=== PATIENT | female | born 1965 | race Caucasian/White ===

== ENCOUNTER 2018-09-21 13:36 | Emergency (ER) | payer MEDICAID ==
[~2018-09-21] VITALS: Ht 167.6 cm; Wt 55.8 kg
--- NOTE | 2018-09-21 13:54 | NUR ---
"Stress, neck, upper back pain Numbness on face, arms and upper body on/off xcouple weeks worse last week also feeling depressed". 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 NO ACUTE DISTRESS NOTED. SKIN INTACT. READY FOR EVAL.
[2018-09-21 14:37] LABS: BASOPHILS % (AUTO) 0.4 % (0.0-2.0); HEMATOCRIT 40 % (33-45); HEMOGLOBIN 13.2 g/dL (11.5-14.8); LYMPHOCYTES # (AUTO) 1.3 /CMM (0.8-4.8); LYMPHOCYTES % (AUTO) 17.8 % (20.0-44.0); MEAN CORPUSCULAR HGB CONC 33 g/dl (31.0-36.0); MEAN CORPUSCULAR VOLUME 91 fL (82-100); MONOCYTES # (AUTO) 0.4 /CMM (0.1-1.30); NEUTROPHILS # (AUTO) 5.3 /CMM (1.8-8.9); NEUTROPHILS % (AUTO) 74.8 % (43.0-81.0); PLATELET COUNT (AUTO) 322 /CMM (150-450); RED BLOOD CELL COUNT(AUTO) 4.32 MIL/uL (4.0-5.2); WHITE BLOOD COUNT (AUTO) 7.1 K/uL (4.3-11.0)
[2018-09-21 14:44] LABS: CALCIUM, SERUM 8.7 mg/dL (8.5-10.1); CARBON DIOXIDE 27 mmol/L (21-32); CHLORIDE 106 mmol/L (98-107); CREATININE 0.7 mg/dL (0.6-1.3); GLUCOSE 87 mg/dL (74-106); POTASSIUM 3.3 mmol/L (3.5-5.1); SODIUM SERUM 138 mmol/L (136-145); UREA NITROGEN, BLOOD 12 mg/dL (7-18)
[2018-09-21 14:50] LABS: ALANINE AMINOTRANSFERASE 18 U/L (12-78); ALBUMIN 3.8 g/dL (3.4-5.0); ALKALINE PHOSPHATASE 51 U/L (46-116); ASPARTATE AMINOTRANSFERASE 16 U/L (15-37); BILIRUBIN,DIRECT 0.1 mg/dL (0.0-0.2); BILIRUBIN,TOTAL 0.4 mg/dL (0.2-1.0)
--- NOTE | 2018-09-21 15:34 | NUR ---
Patient discharged to home in stable condition. Written and verbal after care instructions given. Patient verbalizes understanding of instruction.
[2018-09-21 15:35] VITALS: BP 145/86
== END 2018-09-21 15:36 | disposition home or self-care (01) ==
LOC: ER 13:42
DX: R20.2 Paresthesia of skin (principal); Z88.2 Allergy status to sulfonamides; Z88.1 Allergy status to other antibiotic agents
CPT/HCPCS: 36415; 71045; 80048; 80076; 84484; 85025; 93005; 99284; A4606

== ENCOUNTER 2019-05-05 23:38 | Emergency (ER) | payer MEDICAID ==
[~2019-05-05] VITALS: Ht 170.2 cm; Wt 67.6 kg
[2019-05-05 23:55] VITALS: BP 129/83
[2019-05-06] MEDS ORDERED: FLUORESCEIN SODIUM OPHTH 1 EA STRIP ONE (00:02)
[2019-05-06] MEDS: TETRAcaine 5 ML BOTTLE EACHEYE ONE (00:16)
[2019-05-06] MEDS: FLUORESCEIN SODIUM OPHTH 1 EA STRIP OP ONE (00:16)
== END 2019-05-06 00:19 | disposition home or self-care (01) ==
LOC: ER 23:41
DX: S05.01XA Injury of conjunctiva and corneal abrasion without foreign body, right eye, initial encounter (principal); Z88.2 Allergy status to sulfonamides; Z88.1 Allergy status to other antibiotic agents; X58.XXXA Exposure to other specified factors, initial encounter; Y93.89 Activity, other specified; Y92.89 Other specified places as the place of occurrence of the external cause; Y99.8 Other external cause status

== ENCOUNTER 2019-06-14 21:49 | Emergency (ER) | payer MEDICAID ==
[~2019-06-14] VITALS: Ht 170.2 cm; Wt 65.8 kg
--- NOTE | 2019-06-14 21:55 | NUR ---
PT BIBSELF. AAOX4. AMBULATORY. PT C/O SOB. "CHOKING ON CHICKEN OR SOMETHING." PT RR EVEN AND UNLABORED. VSS. O2 100. PT STATES SHE HAS BEEN VOMITING X2HRS. CLEAR VOMIT. PLACED ON MONITOR AND PULSE OX.
--- NOTE | 2019-06-14 22:05 | NUR ---
PT SPEAKING TO MD. NO ACUTE DISTRESS NOTED. RR EVEN AND UNLABORED.
[2019-06-14] MEDS ORDERED: diphenhydrAMINE HCL 50 MG/ML VIAL ONE (22:17)
[2019-06-14] MEDS ORDERED: PANTOPRAZOLE 40 MG VIAL ONE (22:18)
[2019-06-14] MEDS ORDERED: METOCLOPRAMIDE HCL 10 MG/2 ML VIAL ONE (22:18)
[2019-06-14] MEDS ORDERED: GLUCAGON,HUMAN RECOMBINANT 1 MG/VIAL VIAL ONE (22:18)
--- NOTE | 2019-06-14 22:21 | NUR ---
XRAY AT BEDSIDE
[2019-06-14 22:24] LABS: BASOPHILS % (AUTO) 0.8 % (0.0-2.0); EOSINOPHILS % (AUTO) 4.2 % (0.0-6.0); HEMATOCRIT 40 % (33-45); HEMOGLOBIN 13.1 g/dL (11.5-14.8); LYMPHOCYTES % (AUTO) 32.1 % (20.0-44.0); MEAN CORPUSCULAR HGB CONC 33 g/dl (31.0-36.0); MEAN CORPUSCULAR VOLUME 90 fL (82-100); MONOCYTES # (AUTO) 0.4 /CMM (0.1-1.30); MONOCYTES % (AUTO) 7.2 % (2.0-12.0); NEUTROPHILS # (AUTO) 3.4 /CMM (1.8-8.9); NEUTROPHILS % (AUTO) 55.7 % (43.0-81.0); PLATELET COUNT (AUTO) 327 /CMM (150-450); WHITE BLOOD COUNT (AUTO) 6.2 K/uL (4.3-11.0)
[2019-06-14] MEDS ORDERED: METOCLOPRAMIDE HCL 10 MG/2 ML VIAL IV ONE (22:30)
[2019-06-14] MEDS ORDERED: diphenhydrAMINE HCL 50 MG/ML VIAL IV ONE (22:30)
[2019-06-14] MEDS ORDERED: PANTOPRAZOLE 40 MG VIAL IV ONE (22:30)
[2019-06-14] MEDS ORDERED: GLUCAGON,HUMAN RECOMBINANT 1 MG/VIAL VIAL IV ONE (22:30)
[2019-06-14 22:38] LABS: CALCIUM, SERUM 8.6 mg/dL (8.5-10.1); CREATININE 0.9 mg/dL (0.6-1.3); POTASSIUM 3.6 mmol/L (3.5-5.1)
[2019-06-14 22:43] LABS: ALBUMIN 3.6 g/dL (3.4-5.0); BILIRUBIN,DIRECT 0.1 mg/dL (0.0-0.2); BILIRUBIN,TOTAL 0.2 mg/dL (0.2-1.0); TOTAL PROTEIN, SERUM 6.7 g/dL (6.4-8.2)
--- NOTE | 2019-06-14 23:15 | NUR ---
Patient is resting comfortably in bed. Easily aroused. VSS. at bedside
--- NOTE | 2019-06-15 00:01 | NUR ---
Patient is resting comfortably in bed. Easily aroused. VSS.
--- NOTE | 2019-06-15 00:31 | NUR ---
SPOKE TO RADHA PAIGE ABOUT GOING TO A DIFFERENT HOSPITAL OVER [facility]. [facility] WILL WORK ON IT
--- NOTE | 2019-06-15 01:53 | NUR ---
Pt accepted to [facility]. Bed 307-B. # for report [phone]
--- NOTE | 2019-06-15 02:00 | NUR ---
Call from [facility]. ETA [phone] [facility] ambulance
--- NOTE | 2019-06-15 02:40 | NUR ---
CALLED MAMADOU YANG FOR REPORT. REPORT GIVEN
--- NOTE | 2019-06-15 03:06 | NUR ---
Danuta grimes in [facility] - 06/15/19 at 0307 by VERO REPORT GIVEN TO BING FROM [facility]
--- NOTE | 2019-06-15 03:07 | NUR ---
REPORT GIVEN TO BING FROM [facility]
[2019-06-15 03:13] VITALS: BP 111/76
--- NOTE | 2019-06-15 03:17 | NUR ---
PT BEING TRANSFERED.
== END 2019-06-15 03:20 | disposition short-term general hospital (02) ==
LOC: ER 21:52
DX: K22.2 Esophageal obstruction (principal); Z88.2 Allergy status to sulfonamides; Z88.1 Allergy status to other antibiotic agents
CPT/HCPCS: 36415; 71045; 80048; 80076; 83690; 85025; 85730; 93005; 96374; 96375; 99285; C9113; J1200; J1610; J2765

== ENCOUNTER 2022-03-02 12:32 | Emergency (ER) | payer MEDICAID ==
[~2022-03-02] VITALS: Ht 170.2 cm; Wt 69.9 kg
--- NOTE | 2022-03-02 13:25 | NUR ---
ORTHOPEDICS NURSE AT BEDSIDE FOR XRAY
--- NOTE | 2022-03-02 13:32 | NUR ---
COVID ANTIGEN AND PCR SWABS DONE AND SENT TO LAB
[2022-03-02] MEDS ORDERED: ALBU18HF2 INH (14:12)
[2022-03-02] MEDS ORDERED: BENZ-13 PO (14:12)
[2022-03-02] MEDS ORDERED: AZIT1PAC9 PO (14:12)
[2022-03-02 14:30] VITALS: BP 139/80
--- NOTE | 2022-03-02 14:30 | NUR ---
Patient discharged to home in stable condition. Written and verbal after care instructions given. Patient verbalizes understanding of instruction.
== END 2022-03-02 14:30 | disposition home or self-care (01) ==
LOC: ER 12:34
DX: R05.9 Cough, unspecified (principal); J02.9 Acute pharyngitis, unspecified; Z20.822 Contact with and (suspected) exposure to COVID-19; Z88.2 Allergy status to sulfonamides
CPT/HCPCS: 99284; 71045; 87426; U0003; C9803